=== PATIENT | male | born 1950 | race Caucasian/White ===

== ENCOUNTER 2019-07-09 03:41 | Observation (INO) | payer BC, MEDICARE ==
[2019-07-09 04:24] LABS: #Eosinphils 0.1 thou/uL (0.0-0.7); #Lymphocytes 0.4 thou/uL (1.20-3.40); #Monocytes 0.7 thou/uL (0.11-0.59); #Neutrophils 6.4 thou/uL (1.40-6.50); %Basophils 0.1 % (0.0-1.0); %Eosinophils 1.8 % (0.0-10.0); %Lymphocytes 5.2 % (21.0-51.0); %Monocytes 9.4 % (0.0-10.0); %Neutrophils 83.5 % (42.0-75.0); Hemoglobin 12.7 g/dL (14.0-18.0); Mean Corpuscular HGB CONC 35.1 g/dL (32.0-36.0); Mean Corpuscular Hemoglobin 33.8 pg (27.0-31.0); Mean Corpuscular Volume 96.3 fL (78.0-98.0); Mean Platelet Volume 7.8 fL (7.4-10.4); Platelet Count 187 thou/uL (130-400); RBC Distribution Width 12.1 % (11.5-14.5); Red Blood Cell (RBC) Count 3.75 mill/uL (4.70-6.10); White Blood Cell (WBC) Count 7.7 thou/uL (4.8-10.8)
[2019-07-09 04:43] LABS: PTT 34.2 SEC (22.9-36.1); Prothrombin Time 12.9 SEC (12.0-14.7)
[2019-07-09 04:49] LABS: ALT (SGPT) 10 U/L (8-55); AST (SGOT) 16 U/L (5-34); Albumin 3.6 g/dL (3.4-4.8); Alkaline Phosphatase 94 U/L (40-110); Anion Gap 13 mmol/L (10-20); BUN (Urea Nitrogen) 16 mg/dL (8.4-25.7); Bilirubin, Total 0.9 mg/dL (0.2-1.2); Calc. Creatinine Clearance 0 mL/min (70-130); Calcium 10.2 mg/dL (7.8-10.44); Carbon Dioxide 22 mmol/L (23-31); Chloride 105 mmol/L (98-107); Estimated GFR-MDRD 85; Glucose 117 mg/dL (80-115); Potassium 3.9 mmol/L (3.5-5.1); Protein, Total 6.6 g/dL (5.8-8.1); Sodium 136 mmol/L (136-145)
[2019-07-09] MEDS ORDERED: Acetaminophen 325 MG TAB PO PRN (05:55)
[2019-07-09] MEDS ORDERED: Guaifenesin DM 100-10/5 ML UDCUP PO PRN (05:55)
[2019-07-09] MEDS ORDERED: Ondansetron PF 4 MG/2 ML Vial IVP PRN (05:55)
[2019-07-09] MEDS ORDERED: Sodium Chloride 0.9% 1,000 ML IV SCH (06:00)
[2019-07-09] MEDS ORDERED: Enoxaparin Sodium 100 MG/ML SYRINGE ONE (06:03)
[2019-07-09] MEDS ORDERED: Enoxaparin Sodium 100 MG/ML SYRINGE SC SCH (06:15)
--- NOTE | 2019-07-09 06:28 | HP ---
PRESENTING COMPLAINT: Right-sided chest pain. HISTORY OF PRESENT ILLNESS: A 69-year-old male with past medical history of prostate cancer with bone metastasis, presented with sudden onset right-sided chest pain, pressure like, woke the patient up from sleep at about 2:00 a.m., associated with shortness of breath on deep breathing. The patient also admits to cough, which also worsened the chest pain. He denies any nausea or vomiting. He sat up in bed and reviewed online information under chest pain, but was worried since his chest pain was not left-sided, then decided to come to the ED. He denies any cardiac history. History of transient tobacco use in his 20s, but none since over the last 40 years. He states he has recent radiation to the chest because of thoracic vertebral bone metastasis. He completed radiation treatment one week ago. He denies any recent travel. He denies any sputum production. He admits to being on Lupron and Xtandi for his metastatic prostate cancer. He denies any pain in his legs. His pain was not relieved by nitroglycerin. PAST MEDICAL HISTORY: 1. Prostate cancer with bone metastasis. 2. Recent history of prostate cancer with bone metastasis. PAST SURGICAL HISTORY: Right knee arthroscopy. HOME MEDICATIONS: 1. Lisinopril 40 mg. 2. Pantoprazole 40 daily. 3. Xtandi as well as monthly Lupron. SOCIAL HISTORY: History of transient tobacco use in his 20s. No history of alcohol or illicit drug use. He resides in a community with his spouse. FAMILY HISTORY: Negative for CAD or diabetes. ALLERGIES: NO KNOWN DRUG ALLERGY. REVIEW OF SYSTEMS: All systems reviewed x14 were negative except as mentioned above. PHYSICAL EXAMINATION: VITAL SIGNS: Current vitals; blood pressure 172/86, pulse of 75, respiratory rate of 18, O2 sat is 95% on room air. GENERAL: Average built, middle-aged male, appearing older, sitting up in bed. Does not have any coughing fit. HEENT: Head is atraumatic and normocephalic. Pupils equal and reactive to light. NECK: No JVD. No carotid bruit. RESPIRATORY: Good breath sounds bilaterally, but mild increased egophony over the right lower base. No wheeze or rhonchi. CARDIOVASCULAR: S1, S2. Rate and rhythm regular. No reproducible chest wall tenderness. GI: Abdomen is full, soft. No epigastric tenderness. Bowel sounds positive. EXTREMITIES: No calf tenderness. No pedal edema. NEUROLOGIC: The patient is alert, conversant. No neurological focal motor deficit. LABORATORY DATA: WBC 7.7 with 83% neutrophils, hemoglobin 12.7, platelet 187, potassium 3.9, bicarb 22, BUN 16, creatinine 0.8, and INR 1.0. Troponin less than 0.01. BNP 50. Chest x-ray shows mild right base infiltrate. EKG showed normal sinus rhythm, T-wave inversion in lead III, aVF, but otherwise no other ST-segment changes. IMPRESSION: 1. Right-sided chest pain, likely due to right base pneumonia, community acquired. 2. Rule out pulmonary embolism, given history of Lupron use. 3. On hormonal therapy. 4. Prostate cancer with bone metastasis. 5. Hypertension, uncontrolled. PLAN: We will admit to observation. We will obtain a stat CT to rule out PE. We will start the patient on empirical antibiotics with Levaquin. We will obtain sputum for culture and sensitivity if feasible. We will also obtain serial set of cardiac enzymes, although less likely to be negative, given absence of cardiac event. We will do Lovenox for DVT prophylaxis. Continue hormonal regimen with Xtandi. Given contrast exposure, we will switch lisinopril to Norvasc for now. Continue pantoprazole. We will do gentle IV fluid with normal saline as tolerated. We will also rule out flu with influenza as well. Advance directives, the patient is a full code. GI prophylaxis, continue Protonix. Total time spent in review of record, discussion with patient and evaluation greater than 60 minutes. Job ID: [id number]
[2019-07-09] MEDS ORDERED: HYDROcodone/Acetaminophen 5/325 mg Tablet ONE (06:59)
[2019-07-09] MEDS: HYDROcodone/Acetaminophen 5/325 mg Tablet PO PRN ×2 (07:09→16:32)
[2019-07-09 07:12] LABS: Troponin I Less than 0.010 ng/mL (< 0.028)
[2019-07-09] MEDS ORDERED: Amlodipine 10 MG TAB PO SCH (09:00)
--- NOTE | 2019-07-09 09:18 | RAD ---
1 VIEW CHEST: Date: 07/09/19 HISTORY: Chest pain and hypertension. FINDINGS: Atherosclerosis of aortic knob. Normal cardiac silhouette. Pulmonary vessels and hilum are normal. Co stophrenic angles are clear. No consolidation or mass. No pneumothorax or osseous abnormalities. IMPRESSION: Atherosclerosis. No acute cardiopulmonary process. POS: CET
--- NOTE | 2019-07-09 09:35 | CT ---
CT ANGIOGRAM THORAX WITH IV CONTRAST AND 3D RECONSTRUCTIONS: HISTORY: Pneumonia, hypertension, and chest pain. The patient complains of right-sided chest pressure. COMPARISON: None. FINDINGS: There is a focal mass-like density in the anterior aspect of the right upper lobe measuring 3 cm. Th is could be related to a focal area of pneumonia in the correct clinical scenario, but neoplastic pro cess cannot be entirely excluded. No additional pulmonary nodule or mass is seen in the lungs bilate rally. Calcified granuloma is present in the anterior aspect right upper lobe. Small right pleural effusion and associated passive atelectasis are noted. No pleural fluid is seen on the left. No filling defects are seen in the pulmonary arteries to suggest a pulmonary embolus. Vascular calcifications are seen in the coronary arteries and involving the thoracic aorta. The thor acic aorta is normal in caliber. However, the thoracic aorta is not well opacified to evaluate for a ortic dissection. No enlarged mediastinal or hilar lymph nodes are seen. Gallbladder calculi are visualized. Splenic granulomata are noted. There is a small hypodense lesio n seen in the right hepatic lobe stable compared to a prior study in 2015. Nonobstructing left renal calculi are again seen. There is slight nodular prominence of the right ad renal gland similar to the prior study. There are sclerotic lesion seen within the T6 and T9 vertebral bodies suggesting sclerotic metastatic lesions, and the sclerotic lesion in the T9 vertebral body was partially imaged on the CT abdomen in 2015. No other lytic or sclerotic osseous lesions are appreciated. IMPRESSION: 1. Mass-like density anterior right upper lobe which could be related to pneumonia in the correct cl inical scenario, but neoplastic process cannot be excluded. Continued close interval followup is rec ommended to ensure resolution. 2. Tiny right pleural effusion and associated atelectasis. 3. Sclerotic metastatic lesions in the T6 and T9 vertebral bodies. 4. No CT evidence of a pulmonary embolus. 5. Cholelithiasis. 6. Nonobstructing left renal calculi. 7. Stable mild nodular prominence of the right adrenal gland. 8. Right hepatic lobe cyst also seen on prior exam. CODE T POS: FRANSISCA
[2019-07-09 10:14] VITALS: BMI 27.6
[2019-07-09 10:31] LABS: Troponin I Less than 0.010 ng/mL (< 0.028)
[2019-07-09] MEDS ORDERED: Iopamidol 370 76% 100 ML VIAL ONE (11:31)
[2019-07-09 13:34] LABS: Troponin I Less than 0.010 ng/mL (< 0.028)
[2019-07-09 15:57] VITALS: BP 159/79; TEMP 98.5
--- NOTE | 2019-07-09 17:37 | PDOC.HOSPP ---
- Subjective Encounter Date: 07/09/19 Encounter Time: 17:36 Subjective: Mr. Calvo notes some pain in his right side of the chest when he takes a deep breath. No other complaints. - Objective Vital Signs & Weight: Vital Signs (12 hours) Temp Pulse Resp BP BP Pulse Ox 07/09/19 15:43 98.5 F 61 16 159/79 H 97 07/09/19 11:43 98.7 F 62 16 160/83 H 97 07/09/19 10:32 149/79 H 07/09/19 09:50 99 F 61 18 189/91 H 97 07/09/19 08:22 72 171/93 H Weight Weight 192 lb 3.2 oz Result Diagrams: 07/09/19 04:10 07/09/19 04:10 Hospitalist ROS - Medication Medications: Active Medications Generic Name Dose Route Start Last Admin Trade Name Freq PRN Reason Stop Dose Admin Hydrocodone Bitart/Acetaminophen 1 tab 07/09/19 05:55 07/09/19 16:32 Carter 5/325 PO 1 tab Q4H PRN Administration Moderate Pain (4-6) Amlodipine Besylate 10 mg 07/09/19 09:00 07/09/19 08:22 Norvasc PO 10 mg DAILY ROLAND Administration Sodium Chloride 1,000 mls @ 75 mls/hr 07/09/19 06:00 07/09/19 07:08 Normal Saline 0.9% IV 1,000 mls .[id number] ROLAND Administration Levofloxacin 750 mg/ Device 150 mls @ 100 mls/hr 07/09/19 07:00 07/09/19 07: 08 IVPB 150 mls 0700 ROLAND Administration - Exam Eye: PERRL Heart: RRR, no murmur, no gallops, no rubs, normal peripheral pulses Respiratory: CTAB, no wheezes, no rales, no ronchi, normal chest expansion, no tachypnea, normal percussion Gastrointestinal: soft, non-tender, non-distended, normal bowel sounds, no palpable masses Extremities: no cyanosis, no edema Hosp A/P (1) Chest pain Code(s): R07.9 - CHEST PAIN, UNSPECIFIED Status: Acute (2) Pleurisy Code(s): R09.1 - PLEURISY Status: Acute - Plan * Chest pain- likely due to Pleurisy, but he will need close outpatient follow- up for the abnormal CT scan findings- discussed with the patient and his .
--- NOTE | 2019-07-10 04:55 | DIS ---
DATE OF ADMISSION: 07/09/2019 DATE OF DISCHARGE: 07/09/2019 PRIMARY CARE PHYSICIAN: Unknown. DISCHARGE DISPOSITION: Home. DISCHARGE DIAGNOSES: 1. Chest pain. 2. Probable pleurisy. 3. History of prostate cancer. 4. Hypertension. DISCHARGE MEDICATIONS: Include; 1. Lodine 400 mg one p.o. 3 times a day as needed for pain. 2. Levaquin 500 mg one p.o. daily for 3 days. 3. Protonix 40 mg daily. 4. Lisinopril 40 mg daily. 5. Lupron 30 mg IM as directed. 6. Xtandi 160 mg daily. 7. Xgeva 120 mg every 30 days. PROCEDURES DONE DURING THE ADMISSION: The patient had a CT angiogram of the chest, which was negative for any pulmonary embolism. However, there was a mass-like density in the right upper lobe, which could be related to pneumonia, tiny right pleural effusion, evidence of cholelithiasis. CODE STATUS: Full code. ALLERGIES: NO KNOWN DRUG ALLERGIES. HOSPITAL COURSE: Mr. Calvo is a pleasant 69-year-old gentleman, who presented to the emergency room after he awoke from sleep with severe pain in the right side of his chest. It is worse with inspiration. He does admit to having recent ear ache and some fluid in the eardrum. He was placed in observation due to concerns for possible pulmonary embolism given his history of prostate cancer. This was negative. He was found to have a mass-like lesion in the upper lobe, which could be consistent with pneumonia. 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 However, I did explain to him that he should follow up in about 3 months with a repeat CT scan of the chest just to make sure that this is stable. He voiced understanding and his was at the bedside as well when this was discussed. The patient will be discharged and treated for presumed pneumonia and has been instructed to have close outpatient followup. Job ID: [id number]
[2019-07-10] MEDS ORDERED: Enoxaparin Sodium 40 MG/0.4 ML SYRINGE SC SCH (09:00)
== END 2019-07-09 18:03 | disposition home or self-care (01) ==
LOC: ERS 03:41 → ERHOLD 05:03 → 2SW 09:37
PROVIDERS: ADMIT Internal Medicine; ATTEND Internal Medicine
DX: R07.89 Other chest pain (principal); C61 Malignant neoplasm of prostate; C79.51 Secondary malignant neoplasm of bone; I10 Essential (primary) hypertension; N20.0 Calculus of kidney; R91.8 Other nonspecific abnormal finding of lung field; Z87.891 Personal history of nicotine dependence; Z79.899 Other long term (current) drug therapy
CPT/HCPCS: 71045; 71275; 80053; 83880; 84484 ×2; 85025; 85610; 85730; 87040; 87804 ×2; 93005; 96360; 96361; 96372; 99285; G0378 ×2; 36415; J1650; J1956; Q9967

== ENCOUNTER 2022-07-13 07:19 | Observation (INO) | payer MEDICARE ==
[2022-07-12 10:13] VITALS: BMI 26.6
[2022-07-13] MEDS ORDERED: Tranexamic Acid 1,000 MG/10 ML VIAL ONE (07:47)
[2022-07-13] MEDS ORDERED: Vancomycin (BATCH) 1.5 GRAM/300 ML BAG ONE (07:47)
[2022-07-13] MEDS ORDERED: Sodium Chloride 0.9% 100 ML ONE ×2 (07:47→09:46)
[2022-07-13] MEDS ORDERED: Fentanyl 100 MCG/2 ML VIAL ONE ×4 (08:23→14:02)
[2022-07-13] MEDS ORDERED: Ropivacaine 0.5% HCl/PF (150 MG/30 ML VIAL) ONE (08:23)
[2022-07-13] MEDS ORDERED: Midazolam HCl 2 mg/2 ml Vial ONE (08:23)
[2022-07-13 08:55] LABS: SARS-CoV-2 NAA Rapid Test Not Detected (NotDetected)
[2022-07-13] MEDS ORDERED: Acetaminophen 325 MG TAB PO PRN (09:07)
[2022-07-13] MEDS ORDERED: Promethazine HCl 25 MG/ML VIAL IM PRN ×3 (09:07→11:45)
[2022-07-13] MEDS ORDERED: diphenhydrAMINE 25 MG CAP PO PRN (09:07)
[2022-07-13] MEDS ORDERED: HYDROcodone/Acetaminophen 10/325 mg Tablet PO PRN ×3 (09:07→11:45)
[2022-07-13] MEDS ORDERED: Zolpidem Tartrate 5 MG TAB PO PRN ×2 (09:07→11:45)
[2022-07-13] MEDS ORDERED: Ondansetron PF 4 MG/2 ML Vial IVP PRN ×2 (09:07→11:45)
[2022-07-13] MEDS ORDERED: LEUPROLIDE ACETATE 30 MG IM SCH (09:15)
[2022-07-13] MEDS ORDERED: DENOSUMAB 120 MG/1.7 ML SC SCH (09:15)
[2022-07-13] MEDS ORDERED: Bupivacaine PF 0.5% 30 ML VIAL ONE (09:18)
[2022-07-13] MEDS ORDERED: Fentanyl 250 MCG/5 ML VIAL ONE (09:42)
[2022-07-13] MEDS ORDERED: Lidocaine 2% 6 ML SYR ONE (09:42)
[2022-07-13] MEDS ORDERED: CEFAZOLIN 2 GM VIAL ONE (09:46)
[2022-07-13] MEDS ORDERED: Labetalol HCl 100 MG/20 ML VIAL ONE (09:57)
[2022-07-13] MEDS ORDERED: PROPOFOL 200 MG/20 ML VIAL ONE (09:57)
[2022-07-13] MEDS ORDERED: Ondansetron PF 4 MG/2 ML Vial ONE (09:57)
[2022-07-13] MEDS ORDERED: ePHEDrine 50 MG/ML VIAL ONE (09:57)
[2022-07-13] MEDS ORDERED: FENTANYL 50 MCG/ML 1 ML VIAL SLOW IVP PRN ×2 (10:42→10:45)
[2022-07-13] MEDS ORDERED: Promethazine HCl 25 MG/ML VIAL IVPB PRN (11:26)
[2022-07-13] MEDS ORDERED: Ondansetron HCl/PF 4 MG/2 ML Vial IVP PRN (11:26)
[2022-07-13] MEDS ORDERED: Fentanyl 100 MCG/2 ML VIAL IV PRN (11:35)
[2022-07-13] MEDS ORDERED: HYDROmorphone 0.5 MG/0.5 ML SYRINGE ONE ×2 (11:41→12:02)
[2022-07-13] MEDS ORDERED: traMADol HCl 50 MG TAB PO PRN ×2 (11:45)
[2022-07-13] MEDS ORDERED: Ropivacaine 0.2% 550 ML 550 ML NERVE BLCK SCH (11:45)
[2022-07-13] MEDS ORDERED: Ketorolac Tromethamine 30 MG/ML VIAL ONE (12:52)
[2022-07-13] MEDS: Ketorolac Tromethamine 30 MG/ML VIAL IVP SCH ×2 (12:54→17:30)
[2022-07-13] MEDS: CEFAZOLIN 2 GM in Sodium Chloride 0.9% 100 ML IVPB SCH (17:31)
[2022-07-13] MEDS: Sodium Chloride 0.9% 1,000 ML IV SCH ×2 (17:38→19:44)
[2022-07-13] MEDS: Senokot S 8.6-50 MG TAB PO SCH (20:54)
[2022-07-13] MEDS: Ferrous Gluconate 324 MG TAB PO SCH (20:54)
[2022-07-13] MEDS: Aspirin 81 mg Enteric Coated Tablet PO SCH (20:54)
[2022-07-14] MEDS: CEFAZOLIN 2 GM in Sodium Chloride 0.9% 100 ML IVPB SCH (00:11)
[2022-07-14] MEDS: Ketorolac Tromethamine 30 MG/ML VIAL IVP SCH ×3 (00:11→11:08)
[2022-07-14] MEDS: HYDROcodone/Acetaminophen 10/325 mg Tablet PO PRN ×3 (02:16→13:05)
[2022-07-14 06:07] LABS: Hemoglobin 11.1 g/dL (14.0-18.0); Mean Corpuscular HGB CONC 33.3 g/dL (32.0-36.0); Mean Corpuscular Hemoglobin 34.3 pg (27.0-31.0); Mean Platelet Volume 7.9 fL (7.4-10.4); Platelet Count 126 10x3/uL (130-400); Red Blood Cell (RBC) Count 3.25 mill/uL (4.70-6.10); White Blood Cell (WBC) Count 5.2 10x3/uL (4.8-10.8)
[2022-07-14 07:31] VITALS: TEMP 98
[2022-07-14] MEDS: Sodium Chloride 0.9% 1,000 ML IV SCH (07:34)
[2022-07-14] MEDS: Senokot S 8.6-50 MG TAB PO SCH (08:05)
[2022-07-14] MEDS: Aspirin 81 mg Enteric Coated Tablet PO SCH (08:06)
[2022-07-14] MEDS: Ferrous Gluconate 324 MG TAB PO SCH (08:06)
[2022-07-14] MEDS ORDERED: Non-Formulary Item 1 EACH (Enzalutamide [Xtandi] 40 MG Capsule) PO SCH (09:00)
[2022-07-14] MEDS ORDERED: Multivitamin W/ Minerals 1 TAB PO SCH (09:00)
[2022-07-14] MEDS ORDERED: Lisinopril 20 MG TAB PO SCH (09:00)
[2022-07-14 13:09] VITALS: BP 155/87
== END 2022-07-14 13:16 | disposition home or self-care (01) ==
LOC: SDC 07:19 → SJJU 14:35 → SDC 15:35
PROVIDERS: ADMIT Orthopaedic Surgery; ATTEND Orthopaedic Surgery
PROC: 0SRC0J9 Replacement of Right Knee Joint with Synthetic Substitute, Cemented, Open Approach (ICD-10-PCS; principal; 2022-07-13)
DX: M17.11 Unilateral primary osteoarthritis, right knee (principal); M21.161 Varus deformity, not elsewhere classified, right knee; I10 Essential (primary) hypertension; F17.200 Nicotine dependence, unspecified, uncomplicated; F17.290 Nicotine dependence, other tobacco product, uncomplicated; Z85.46 Personal history of malignant neoplasm of prostate; Z79.620 Long term (current) use of immunosuppressive biologic; Z79.899 Other long term (current) drug therapy; Z20.822 Contact with and (suspected) exposure to COVID-19
CPT/HCPCS: 20985; 27447; 73560; 85027; 97110 ×2; 97116 ×2; 97530; A4306; C1713; C1776; J3370; U0002; 36415; J1170; J1885; J2250; J2405; J2704; J2795; J3010; J3490; S0020